=== PATIENT | female | born 1940 | race Asian ===

== ENCOUNTER 2017-05-18 11:54 | Day surgery (SDC) | payer OTHER ==
[2017-05-18] MEDS ORDERED: FENTAnyl 50 MCG/ML VIAL (15:14)
[2017-05-18] MEDS ORDERED: MIDAZOLAM 1 MG/ML 2 ML INJ ×2 (15:14)
== END 2017-05-18 16:10 | disposition home or self-care (01) ==
LOC: GIL 11:54
DX: Z12.11 Encounter for screening for malignant neoplasm of colon (principal); K64.8 Other hemorrhoids; K62.6 Ulcer of anus and rectum
CPT/HCPCS: 45380; 88305